=== PATIENT | female | born 1955 | race Caucasian/White ===

== ENCOUNTER 2021-03-06 08:34 | Day surgery (SDC) | payer OTHER ==
[~2021-03-06] VITALS: Ht 157.5 cm; Wt 105.7 kg
[~2021-03-06 08:34] MED LIST: CHOL10002; CONTRAVE ER 8-1 EACH; DAILY MULTIPLE1 EACH; DILT120; FISH1000; HYOS.125; IRBHYD150; PANT40; QVAR7.3 G1; Red Yeast Rice600 MG
--- NOTE | 2021-03-06 09:32 | NUR ---
03/06/21 0932 Danielle Diego LATE ENTRY--- SPOKE WITH PATIENT AND HIS OFFICE AND THERE IS NO REASON FOR THE EGD TODAY SO WE WILL PROCEED WITH COLONOSCOPY ONLY
--- NOTE | 2021-03-06 10:24 | NUR ---
03/06/21 Danielle Bain FORCEP MALFUNCTIONED AND BECAME VERY HARD TO OPEN SO NEW FORCEP WAS OPENED
--- NOTE | 2021-03-06 10:52 | NUR ---
03/06/21 1052 Danielle Diego PT C/O PAIN ON ADMIT TO SDU THAT SHE RATES 3-4/10 AND CRAMPING IN HER LOWER LEFT ABDOMEN. SHE IS REASSURRED THAT DUE TO HER TWISTY AND TIGHT COLON THIS IS MOST LIKELY DUE TO TRAPPED CO2 AND THIS SHOULD SLOWLY RESOLVE. AT 1048 SHE STATES THE PAIN IS IMPROVING AND NOW MAY BE ONLY 3/10. HOWEVER PATIENT IS NAUSEOUS AND DRY HEAVES. ZOFRAN GIVEN PER MD ORDER. AFTER APPROXIMATELY 10 MINUTES THIS HAS NOT HELPED AND SHE IS STILL HAVING DRY HEAVES AND NAUSEA.
== END 2021-03-06 11:04 | disposition home or self-care (01) ==
LOC: ORSCSDS 08:34
PROVIDERS: Internal Medicine Gastroenterology
PROC: 0DBN8ZX Excision of Sigmoid Colon, Via Natural or Artificial Opening Endoscopic, Diagnostic (ICD-10-PCS; principal; 2021-03-06 10:00)
PROC: 0DBH8ZX Excision of Cecum, Via Natural or Artificial Opening Endoscopic, Diagnostic (ICD-10-PCS; principal; 2021-03-06 10:00)
PROC: 0DBL8ZX Excision of Transverse Colon, Via Natural or Artificial Opening Endoscopic, Diagnostic (ICD-10-PCS; principal; 2021-03-06 10:00)
PROC: 0DBK8ZX Excision of Ascending Colon, Via Natural or Artificial Opening Endoscopic, Diagnostic (ICD-10-PCS; principal; 2021-03-06 10:00)
PROC: 0DBP8ZX Excision of Rectum, Via Natural or Artificial Opening Endoscopic, Diagnostic (ICD-10-PCS; principal; 2021-03-06 10:00)
DX: Z12.11 Encounter for screening for malignant neoplasm of colon (principal); D12.0 Benign neoplasm of cecum; D12.2 Benign neoplasm of ascending colon; D12.3 Benign neoplasm of transverse colon; D12.8 Benign neoplasm of rectum; K63.5 Polyp of colon; K57.30 Diverticulosis of large intestine without perforation or abscess without bleeding; K64.8 Other hemorrhoids; I10 Essential (primary) hypertension; E78.5 Hyperlipidemia, unspecified; Z86.010 Personal history of colon polyps; Z79.899 Other long term (current) drug therapy
CPT/HCPCS: 88305; J2405; J2704; J3010; J7120

== ENCOUNTER 2024-09-26 06:44 | Day surgery (SDC) | payer OTHER ==
[~2024-09-26] VITALS: Ht 157.5 cm; Wt 98.7 kg
[2024-09-26] MEDS ORDERED: Lactated Ringer's 1,000 ML IV ONE ×2 (07:15→08:10)
[2024-09-26] MEDS ORDERED: LANS30EC (07:31)
[2024-09-26] MEDS ORDERED: Amaryl1 MG (07:31)
[2024-09-26] MEDS ORDERED: propofoL 50 ML IV ONE ×2 (08:45→09:13)
[2024-09-26 10:03] VITALS: BP 119/68
== END 2024-09-26 10:09 | disposition home or self-care (01) ==
LOC: ORSCSDS 06:44
PROVIDERS: Specialist
PROC: 0DBC8ZX Excision of Ileocecal Valve, Via Natural or Artificial Opening Endoscopic, Diagnostic (ICD-10-PCS; principal; 2024-09-26 08:30)
PROC: 0DBM8ZX Excision of Descending Colon, Via Natural or Artificial Opening Endoscopic, Diagnostic (ICD-10-PCS; principal; 2024-09-26 08:30)
DX: Z12.11 Encounter for screening for malignant neoplasm of colon (principal); Z86.0100 Personal history of colon polyps, unspecified; D12.0 Benign neoplasm of cecum; K63.5 Polyp of colon; K57.30 Diverticulosis of large intestine without perforation or abscess without bleeding; K64.8 Other hemorrhoids; I10 Essential (primary) hypertension; J45.909 Unspecified asthma, uncomplicated; E11.9 Type 2 diabetes mellitus without complications; K21.9 Gastro-esophageal reflux disease without esophagitis; Z79.84 Long term (current) use of oral hypoglycemic drugs; Z79.899 Other long term (current) drug therapy; E66.9 Obesity, unspecified; Z68.39 Body mass index [BMI] 39.0-39.9, adult
CPT/HCPCS: 82947; 88305; J2704; J7120